=== PATIENT | female | born 1945 | race Caucasian/White ===

== ENCOUNTER 2016-10-29 21:53 | Emergency (ER) | payer OTHER ==
[2016-10-29 22:02] VITALS: BP 170/80; PULSE 78; TEMP 98.3; BMI 30.4
--- NOTE | 2016-10-29 22:06 | PDOC ---
History of Present Illness - General History Source: Patient Exam Limitations: No Limitations - History of Present Illness Initial Comments: 10/29/16 22:19 The patient is a 71 year old female, with a significant past medical history of COPD, chronic bronchitis and anxiety, who presents to the emergency department with shortness of breath, sinus pressure, cough and runny nose. She states that she has been having a cough and runny nose intermittently for the past 3 months for which she has been seen by her PMD. She reports that she has been prescribed Prednisone during this time period and states that using Flonase, Ambien and an emergency inhaler seems to be relieving her symptoms for a short time before returning. She notes that she was advised by her PMD to see a ferry terminal supervisor, for which has an appointment for 11/03/2016. The patient denies chest pain, headache and dizziness. Denies fever, chills, nausea, vomit, diarrhea and constipation. Allergies: Aspirin, bacitracin, oxycodone, benzalkonium chloride, hydrocodone, neosporin Past surgical history: bilateral total knee replacement Social history: Former smoker. No alcohol or drug use reported PMD - Dr. Devendra Up <Donato Puga - Last Filed: 10/29/16 22:19> <Denis cShulte - Last Filed: 10/29/16 22:26> - General Chief Complaint: Cold Symptoms Stated Complaint: COUGH Past History <Donato Puga - Last Filed: 10/29/16 22:19> - Past Medical History Asthma: Yes COPD: Yes (CHRONIC BRONCHITIS) Psychiatric Problems: Yes (ANXIETY) - Surgical History Orthopedic Surgery: Yes (B/L TOTAL KNEE REPLACEMENT) - Immunization History TDAP Vaccination: (04/10/15) - Psycho/Social/Smoking Cessation Hx Anxiety: Yes Suicidal Ideation: No Smoking Status: Yes Smoking History: Former smoker Have you smoked in the past 12 months: No Number of Cigarettes Smoked Daily: 0 If you are a former smoker, when did you quit?: 40 YRS Information on smoking cessation initiated: No Hx Alcohol Use: No Drug/Substance Use Hx: No Substance Use Type: None Hx Substance Use Treatment: No <Denis Schulte - Last Filed: 10/29/16 22:26> - Past Medical History Allergies/Adverse Reactions: Allergies Allergy/AdvReac Type Severity Reaction Status Date / Time hydrocodone Allergy Intermediate Vomiting Verified 09/17/16 07:18 oxycodone Allergy Intermediate Vomiting Verified 09/17/16 07:18 aspirin Allergy Unknown Verified 09/17/16 07:18 bacitracin [From Neosporin] Allergy Unknown Verified 09/17/16 07:18 bacitracin zinc Allergy Unknown Verified 09/17/16 07:18 [From Neosporin] benzalkonium chloride Allergy Unknown Verified 09/17/16 07:18 [From Neosporin] gramicidin D [From Neosporin] Allergy Unknown Verified 09/17/16 07:18 hydrocortisone Allergy Unknown Verified 09/17/16 07:18 [From Neosporin] neomycin sulfate Allergy Unknown Verified 09/17/16 07:18 [From Neosporin] polymyxin B [From Neosporin] Allergy Unknown Verified 09/17/16 07:18 polymyxin B sulfate Allergy Unknown Verified 09/17/16 07:18 [From Neosporin] Home Medications: Ambulatory Orders Zolpidem Tartrate [Ambien] 10 mg PO HS 03/21/12 Albuterol Sulfate Inhaler - [Ventolin HFA Inhaler -] 1 - 2 inh PO Q4H PRN Simvastatin [Zocor -] 20 mg PO HS 04/11/15 Venlafaxine HCl ER [Effexor Xr -] 75 mg PO DAILY 04/11/15 Budesonide/Formeterol Fumarate [SYMBICORT 160/4.5mcg -] 1 inh PO BID 10/29/16 Fluticasone Prop 0.05% Nasal [Flonase -] 1 - 2 spray NS DAILY 10/29/16 Omeprazole 20 mg PO DAILY 10/29/16 Prednisone [Deltasone -] 40 mg PO DAILY #08 tablet 10/29/16 Review of Systems - Review of Systems Able to Perform ROS?: Yes Is the patient limited Peruvian proficient: No Constitutional: Yes: Symptoms Reported, See HPI HEENTM: Yes: Symptoms Reported, See HPI, Nose Congestion Respiratory: Yes: Symptoms reported, See HPI, Cough Neurological: No: Symptoms reported All Other Systems: Reviewed and Negative <Denis Schulte - Last Filed: 10/29/16 22:26> *Physical Exam - Vital Signs Last Vital Signs Temp Pulse Resp BP Pulse Ox 98.3 F 78 16 170/80 100 10/29/16 22:00 10/29/16 22:00 10/29/16 22:00 10/29/16 22:00 10/29/16 22:00 <Donato Puga - Last Filed: 10/29/16 22:19> - Vital Signs Last Vital Signs Temp Pulse Resp BP Pulse Ox 98.3 F 78 16 170/80 100 10/29/16 22:00 10/29/16 22:00 10/29/16 22:00 10/29/16 22:00 10/29/16 22:00 - Physical Exam General Appearance: Yes: Nourished, Appropriately Dressed, Other (SPEAKS IN FULL , LONG SENTENCES). No: Apparent Distress HEENT: positive: EOMI Respiratory/Chest: positive: Lungs Clear, Normal Breath Sounds. negative: Chest Tender, Respiratory Distress Cardiovascular: positive: Regular Rhythm Extremity: positive: Normal Capillary Refill, Normal Inspection. negative: Pedal Edema Integumentary: positive: Normal Color Neurologic: positive: Fully Oriented, Alert, Normal Mood/Affect, Normal Response , Motor Strength 5/5 <Denis Schulte - Last Filed: 10/29/16 22:26> *DC/Admit/Observation/Transfer - Attestations Scribe Attestion: 10/29/16 22:19 Documentation prepared by Donato Puga, acting as chief medical director for Denis Schulte MD. <Donato Puga - Last Filed: 10/29/16 22:19> <Denis Schulte - Last Filed: 10/29/16 22:26> Diagnosis at time of Disposition: Cough - Discharge Dispostion Disposition: HOME Condition at time of disposition: Stable - Prescriptions Prescriptions: Prednisone [Deltasone -] 40 mg PO DAILY #08 tablet - Referrals Referrals: Devendra Up MD [Primary Care Provider] - - Patient Instructions Printed Discharge Instructions: DI for Acute Bronchitis Additional Instructions: PLENTY OF FLUIDS (WATER) TAKE MEDICATIONS PRESCRIBED SEE YOUR BRASS POURER ON TUESDAY PLANNED RETURN IF ACUTE, SUDDEN CHANGES
[2016-10-29] MEDS ORDERED: predniSONE 20 MG TABLET (UD) PO ONE (22:19)
[2016-10-29] MEDS ORDERED: predniSONE 20 MG TABLET (UD) ONE (22:19)
[2016-10-29] MEDS ORDERED: SODIUM CHLORIDE FOR INHALATION 3 ML VIAL.NEB IH ONE (22:20)
== END 2016-10-29 22:50 | disposition home or self-care (01) ==
LOC: FER 21:53
PROC: 3E0F7GC Introduction of Other Therapeutic Substance into Respiratory Tract, Via Natural or Artificial Opening (ICD-10-PCS; principal; 2016-10-29)
DX: R05 Cough (principal); J44.9 Chronic obstructive pulmonary disease, unspecified; F41.9 Anxiety disorder, unspecified; J45.909 Unspecified asthma, uncomplicated; Z96.653 Presence of artificial knee joint, bilateral; Z87.891 Personal history of nicotine dependence
CPT/HCPCS: 94640; 99281-25

== ENCOUNTER 2018-06-01 13:35 | Emergency (ER) | payer OTHER ==
[2018-06-01 13:53] VITALS: BP 134/65; PULSE 81; TEMP 98.6; BMI 32.0
--- NOTE | 2018-06-01 14:01 | PDOC ---
History of Present Illness - General Chief Complaint: Injury Stated Complaint: FALL, R FACE & WRIST INJURY Time Seen by Provider: 06/01/18 13:43 History Source: Patient Exam Limitations: No Limitations - History of Present Illness Initial Comments: 06/01/18 13:55 72 year old female c/ hx of HLD, right hand dominant p/w R wrist pain. The patient was walking a large dog. The dog lunged forward and the patient was pulled forward. She landed on an outstreched hand (R). Noticed a deformity of right wrist. Denies numbness, weakness. Pt did have an abrasion to right side of face. No headache or LOC. Does not take any anticoagulants. Past History - Past Medical History Allergies/Adverse Reactions: Allergies Allergy/AdvReac Type Severity Reaction Status Date / Time hydrocodone Allergy Intermediate Vomiting Verified 06/01/18 13:42 oxycodone Allergy Intermediate Vomiting Verified 06/01/18 13:42 aspirin Allergy Unknown Verified 06/01/18 13:42 bacitracin [From Neosporin] Allergy Unknown Verified 06/01/18 13:42 bacitracin zinc Allergy Unknown Verified 06/01/18 13:42 [From Neosporin] benzalkonium chloride Allergy Unknown Verified 06/01/18 13:42 [From Neosporin] gramicidin D [From Neosporin] Allergy Unknown Verified 06/01/18 13:42 hydrocortisone Allergy Unknown Verified 06/01/18 13:42 [From Neosporin] neomycin sulfate Allergy Unknown Verified 06/01/18 13:42 [From Neosporin] polymyxin B [From Neosporin] Allergy Unknown Verified 06/01/18 13:42 polymyxin B sulfate Allergy Unknown Verified 06/01/18 13:42 [From Neosporin] Home Medications: Ambulatory Orders Zolpidem Tartrate [Ambien] 5 mg PO HS 03/21/12 Simvastatin [Zocor -] 20 mg PO HS 04/11/15 Venlafaxine HCl ER [Effexor Xr -] 75 mg PO DAILY 04/11/15 Cholecalciferol (Vitamin D3) [Vitamin D] 2,000 unit PO DAILY 06/01/18 Multivit-Min/Iron/Folic/Lutein [Centrum Silver Women Tablet] 1 each PO DAILY 07/11 Tramadol HCl 50 mg PO Q6H PRN #20 tablet MDD 4 06/01/18 Asthma: Yes COPD: Yes (CHRONIC BRONCHITIS) Hypercholesterolemia: Yes Psychiatric Problems: Yes (ANXIETY) - Surgical History Orthopedic Surgery: Yes (B/L TOTAL KNEE REPLACEMENT) - Immunization History TDAP Vaccination: (04/10/15) - Suicide/Smoking/Psychosocial Hx Smoking Status: Yes Smoking History: Former smoker Have you smoked in the past 12 months: No Number of Cigarettes Smoked Daily: 0 If you are a former smoker, when did you quit?: 40 YRS Information on smoking cessation initiated: No Hx Alcohol Use: No Drug/Substance Use Hx: No Substance Use Type: None Hx Substance Use Treatment: No Review of Systems - Review of Systems Able to Perform ROS?: Yes Comments:: 06/01/18 13:58 GENERAL/CONSTITUTIONAL: No fever or chills. No weakness. HEAD, EYES, EARS, NOSE AND THROAT: No change in vision. No ear pain or discharge. No sore throat. CARDIOVASCULAR: No chest pain or shortness of breath. RESPIRATORY: No cough, wheezing, or hemoptysis. GASTROINTESTINAL: No nausea, vomiting, diarrhea or constipation. GENITOURINARY: No dysuria, frequency, or change in urination. MUSCULOSKELETAL: +right wrist pain and deformity SKIN: No rash NEUROLOGIC: No headache, vertigo, loss of consciousness, or change in strength/ sensation. ENDOCRINE: No increased thirst. No abnormal weight change. HEMATOLOGIC/LYMPHATIC: No anemia, easy bleeding, or history of blood clots. ALLERGIC/IMMUNOLOGIC: No hives or skin allergy. *Physical Exam - Vital Signs Last Vital Signs Temp Pulse Resp BP Pulse Ox 98.6 F 81 16 134/65 97 06/01/18 13:41 06/01/18 13:41 06/01/18 13:41 06/01/18 13:41 06/01/18 13:41 - Physical Exam Comments: 06/01/18 13:59 GENERAL: Awake, alert, and fully oriented, in no acute distress HEAD: Small abrasions to right maxillofacial area EYES: EOMI, sclera anicteric, conjunctiva clear ENT: Auricles normal inspection, hearing grossly normal, nares patent Moist mucosa NECK: Normal ROM, supple EXTREMITIES: RUE: 2+ radial pulse. Sensation intact throughout the median/radian/ulnar nerve distribution. Deformity noted of the right wrist with dorsal angulation. No evidence of skin breakage. Unable to mobilize wrist 2/2 pain and deformity. No tenderness elicited at right forearm or elbow. NEUROLOGICAL: Cranial nerves II through XII grossly intact. Normal speech, normal gait SKIN: Warm, Dry, normal turgor, no rashes or lesions noted. Procedures - Splinting Splint Location: Right: Wrist Pre-Proc Neuro Vasc Exam: normal Hand-Made Type: orthoglass Splint Type: Yes: Sugar Tong Post-Proc Neuro Vasc Exam: normal Tyler Bandage: 4" Sling: Yes Complications: No Post splint xray: Yes Progress: 06/01/18 15:50 Approx 15 cc of 2% lidocaine without epi injected for hematoma block. Excellent anesthesia achieved. A reduction attempt was made and patient was placed in sugar tong splint and sling. Post reduction radiograph demonstrates persistent fracture and no improvement in re-alignment. After discussing case with orthopedist Dr. Lacy, he states that these fractures are difficult to reduce, but the patient can be splinted and followed up in his office. ED Treatment Course - RADIOLOGY Radiology Studies Ordered: Category Date Time Status FOREARM- RIGHT [RAD] Stat Radiology 06/01/18 13:54 Ordered WRIST- RIGHT [RAD] Stat Radiology 06/01/18 13:54 Ordered Medical Decision Making - Medical Decision Making 06/01/18 14:00 Vital Signs Temp Pulse Resp BP Pulse Ox 98.6 F 81 16 134/65 97 06/01/18 13:41 06/01/18 13:41 06/01/18 13:41 06/01/18 13:41 06/01/18 13:41 I suspect the patient likely sustained a wrist fracture. Xray and pain control and reassess. Regarding injury to face, the patient has no complaints. Declines any further workup to the head, which I feel comfortable with. The patient is not on anticoagulants and asymptomatic. Will observe. 06/01/18 15:52 Colles fracture appreciated on wrist radiograph. A reduction attempt was made and patient was placed in sugar tong splint and sling. Post reduction radiograph demonstrates persistent fracture and no improvement in re-alignment. After discussing case with orthopedist Dr. Lacy, he states that these fractures are difficult to reduce, but the patient can be splinted and followed up in his office. Pt has an appointment with Dr. Layc in 3 days. Pt's friend will picking belt operator patient. Pt has no allergies to tramadol. Will write a prescription for tramadol. *DC/Admit/Observation/Transfer Diagnosis at time of Disposition: Wrist fracture Qualifiers: Encounter type: initial encounter Fracture type: closed Laterality: right Qualified Code(s): S62.101A - Fracture of unspecified carpal bone, right wrist, initial encounter for closed fracture - Discharge Dispostion Disposition: HOME Condition at time of disposition: Stable - Prescriptions Prescriptions: Tramadol HCl 50 mg PO Q6H PRN #20 tablet MDD 4 PRN Reason: Pain - Referrals Referrals: Neli Reyes [Primary Care Provider] - Mohsen Lacy MD [Staff Physician] - - Patient Instructions Printed Discharge Instructions: How to Use a Sling, DI for Wrist Fracture, Colles' Fracture Additional Instructions: You have a wrist fracture. Please wear the splint and sling at all times. Take the tramadol every 6 hours as needed for pain control. Try to elevate the arm as much as you can to decrease the swelling. Please go Dr. Lacy's office this Tuesday for the follow visit. If you have uncontrollable pain, please return to the ER. - Post Discharge Activity
[2018-06-01] MEDS ORDERED: LIDOCAINE HCL 2% (50ML VIAL) SQ ONE (14:58)
[2018-06-01] MEDS ORDERED: LIDOCAINE HCL 2% (20ML MULTI-DOSE VIAL) NR ONE (14:58)
== END 2018-06-01 15:52 | disposition home or self-care (01) ==
LOC: FER 13:35
PROC: 0PSMXZZ Reposition Right Carpal, External Approach (ICD-10-PCS; principal; 2018-06-01)
DX: S62.101A Fracture of unspecified carpal bone, right wrist, initial encounter for closed fracture (principal); W18.39XA Other fall on same level, initial encounter; Y93.89 Activity, other specified; Y92.9 Unspecified place or not applicable; Z87.891 Personal history of nicotine dependence; J42 Unspecified chronic bronchitis; F41.9 Anxiety disorder, unspecified; Z96.653 Presence of artificial knee joint, bilateral
CPT/HCPCS: 73090-TC-RT-FY; 73110-TC-RT-FY; 99283-25

== ENCOUNTER → 2018-06-07 | Day surgery (SDC) | payer OTHER ==
[2018-06-06 15:39] VITALS: BMI 32.0
[~2018-06-07] MED LIST: DEXAMETHASONE SOD PHOSPHATE/PF 10 MG/ML SDV ONE; LACTATED RINGERS SOLUTION 1,000 ML IV SCH; MIDAZOLAM HCL 2 MG/2 ML SINGLE DOSE VIAL ONE; ONDANSETRON 4 MG/2 ML VIAL IVPUSH PRN; ROPIVACAINE HCL 0.5% 30ML VIAL ONE; oxyCODONE HCL 5 MG TABLET PO PRN
[2018-06-07 14:26] VITALS: TEMP 97.9
[2018-06-07 14:53] VITALS: BP 136/74; PULSE 72
--- NOTE | 2018-06-09 10:16 | OP ---
DATE OF OPERATION: 06/07/2018 PREOPERATIVE DIAGNOSIS: Right comminuted intraarticular displaced distal radius fracture. POSTOPERATIVE DIAGNOSIS: Right comminuted intraarticular displaced distal radius fracture. OPERATIVE PROCEDURE: 1. Open reduction and internal fixation of right comminuted intraarticular distal radius fracture with internal fixation of 3 or more fragments. 2. Right brachioradialis tenotomy. SURGEON: Gabriel Tran MD POLITICAL SCIENCE PROFESSOR: LISA Warner ANESTHESIA: Regional. COMPLICATIONS: None. ESTIMATED BLOOD LOSS: Minimal. INDICATIONS FOR PROCEDURE: The patient is a 72-year-old female with the above findings, indicated for operative treatment. The risks, benefits, and alternatives were discussed with the patient at length, and proper informed consent was obtained. DESCRIPTION OF PROCEDURE: After proper identification of the patient and the correct operative site, the patient was brought to the operating room and placed supine on the operating table with prominences well padded. Sedation was given by the anesthesiologist. Regional anesthesia was given. Time-out procedure was performed. Right upper extremity was prepped and draped in the usual sterile fashion. A well-padded tourniquet was placed with a sterile prep. Esmarch bandage used to exsanguinate the right upper extremity. Tourniquet inflated to 250 mmHg. A longitudinal incision was made over the volar aspect of the wrist. Incision was taken sharply through the skin with blunt and sharp dissection through the subcutaneous tissues. Flexor carpi radialis tendon along with the contents of the carpal canal was gently and ulnarly retracted for the remainder of the procedure. Pronator quadratus was divided off the distal radius. A highly comminuted fracture was noted. Due to the pull of the brachioradialis, it was not possible to reduce the fracture. Therefore, a brachioradialis tenotomy was performed in a subperiosteal fashion. Fracture alignment was then obtained. This was then secured with an Acumed Acu-Loc distal radius plate with distal locking screws and pegs and proximal nonlocking screws in a bicortical fashion. This provided secure stable fixation and a satisfactory position confirmed radiographically in multiple planes. Distal radioulnar joint and scapholunate intervals were found to be stable. Wound was irrigated with saline and repaired in layers including the pronator quadratus with 4-0 Vicryl and 4-0 nylon. Steri-Strips and sterile dressings were applied. Volar wrist splint was placed. The patient was reversed from anesthesia and brought to the recovery room in stable condition. She tolerated the procedure well. Elmer Potter, the data assistant, was integral throughout this procedure. This procedure could not have been performed without a skilled operative data assistant. GABRIEL TRAN M.D. MARY [id number]
== END | disposition home or self-care (01) ==
LOC: FASU 09:39
PROVIDERS: ATTEND Orthopaedic Surgery Hand Surgery
PROC: 0LN50ZZ Release Right Lower Arm and Wrist Tendon, Open Approach (ICD-10-PCS; 2018-06-07)
PROC: 0PSH04Z Reposition Right Radius with Internal Fixation Device, Open Approach (ICD-10-PCS; principal; 2018-06-07 12:00)
DX: S52.531A Colles' fracture of right radius, initial encounter for closed fracture (principal); X58.XXXA Exposure to other specified factors, initial encounter; Y93.9 Activity, unspecified; Y92.9 Unspecified place or not applicable
CPT/HCPCS: 25290; 25609; C1713; 73110-TC-RT-FY; 94760

== ENCOUNTER 2024-09-26 06:41 | Emergency (ER) | payer OTHER ==
[2024-09-26 06:57] VITALS: BP 170/77; PULSE 86; RESP 16; TEMP 97.5; BMI 31.8
[2024-09-26] MEDS ORDERED: TETRACAINE 0.5% HCL 0.6ML DROPPER.BOTTLE OD ONE (07:18)
[2024-09-26] MEDS ORDERED: FLUORESCEIN NA 1 EA STRIP OD ONE (07:18)
[2024-09-26] MEDS ORDERED: TETRACAINE 0.5% OPHTH SOLN 2 ML BOTTLE ONE (07:26)
[2024-09-26] MEDS ORDERED: FLUORESCEIN NA 1 EA STRIP ONE (07:26)
== END 2024-09-26 08:10 | disposition home or self-care (01) ==
LOC: FER 06:41
DX: H57.89 Other specified disorders of eye and adnexa (principal)
CPT/HCPCS: 99283-25